=== PATIENT | male | born 1995 | race African-American/Black ===

== ENCOUNTER 2018-05-08 22:40 | Emergency (ER) | payer SELFPAY ==
[~2018-05-08] VITALS: Ht 182.9 cm; Wt 73.0 kg
[2018-05-08] MEDS ORDERED: KETOROLAC 15MG/ML VIAL IV ONE (23:30)
[2018-05-08] MEDS ORDERED: SODIUM CHLORIDE 0.9% 1,000 ML IV ONE (23:30)
[2018-05-08] MEDS ORDERED: DEXAMETHASONE 10 MG/ML VIAL IV ONE (23:30)
[2018-05-08] MEDS ORDERED: CLINDAMYCIN 900 MG in DEXTROSE 5% WATER 50 ML IV ONE (23:30)
[2018-05-09 01:20] VITALS: BP 110/60
== END 2018-05-09 01:23 | disposition home or self-care (01) ==
LOC: ER 22:48
DX: J36 Peritonsillar abscess (principal); F12.10 Cannabis abuse, uncomplicated
CPT/HCPCS: 96365; 96375; 99283; J1100; J1885; J3490; J7030; J7060; Z7610